=== PATIENT | male | born 1935 | race Caucasian/White ===

== ENCOUNTER 2018-01-02 09:05 | Day surgery (SDC) | payer MEDICARE, BC ==
[~2018-01-02 09:05] MED LIST: MIDAZOLAM INJ 2 MG/2 ML VIAL (J2250) As Ordered
[2018-01-02] MEDS: TROPICAMIDE 1% OPHTH SOLN 2ML OS (09:33)
[2018-01-02] MEDS: PROPARACAINE 0.5% OPHTH SOL 15ML OS (09:33)
[2018-01-02] MEDS: OFLOXACIN 0.3 % (OCUFLOX) OPTH SOL 5ML OS (09:33)
[2018-01-02] MEDS: PHENYLEPHRINE 2.5% OPHTH SOL 2ML OS (09:33)
[2018-01-02] MEDS ORDERED: fentaNYL 100 MCG/2 ML INJECTION (J3010) As Ordered (10:07)
[2018-01-02] MEDS: POVIDONE-IODINE 5% OPHTH PREP SOL 30ML As Ordered (10:15)
[2018-01-02] MEDS: BALANCED SALT IRRIGATION SOLUTION 500ML BAG (FOR OR EYE MACHINE) As Ordered (10:15)
[2018-01-02] MEDS: DUOVISC (0.50ML VISCOAT/0.55ML PROVISC) OPHTH KIT As Ordered (10:16)
[2018-01-02] MEDS: LIDOCAINE 0.75%/EPINEPHRINE 0.025% IN BSS 1ML SYR INTRACAMERAL (OR ONLY) As Ordered (10:16)
== END 2018-01-02 10:56 | disposition home or self-care (01) ==
LOC: M SDC 09:05
DX: H25.12 Age-related nuclear cataract, left eye (principal); J45.909 Unspecified asthma, uncomplicated; F17.210 Nicotine dependence, cigarettes, uncomplicated; Z79.899 Other long term (current) drug therapy
CPT/HCPCS: 66984

== ENCOUNTER 2018-01-09 07:45 | Day surgery (SDC) | payer MEDICARE, BC ==
[~2018-01-09 07:45] MED LIST changes: +fentaNYL 100 MCG/2 ML INJECTION (J3010) As Ordered
[2018-01-09] MEDS: PROPARACAINE 0.5% OPHTH SOL 15ML OD (08:22)
[2018-01-09] MEDS: OFLOXACIN 0.3 % (OCUFLOX) OPTH SOL 5ML OD (08:26)
[2018-01-09] MEDS: TROPICAMIDE 1% OPHTH SOLN 2ML OD (08:28)
[2018-01-09] MEDS: PHENYLEPHRINE 2.5% OPHTH SOL 2ML OD (08:30)
[2018-01-09] MEDS: POVIDONE-IODINE 5% OPHTH PREP SOL 30ML As Ordered (09:38)
[2018-01-09] MEDS: DUOVISC (0.50ML VISCOAT/0.55ML PROVISC) OPHTH KIT As Ordered (09:38)
[2018-01-09] MEDS: LIDOCAINE 0.75%/EPINEPHRINE 0.025% IN BSS 1ML SYR INTRACAMERAL (OR ONLY) As Ordered (09:38)
[2018-01-09] MEDS: BALANCED SALT IRRIGATION SOLUTION 500ML BAG (FOR OR EYE MACHINE) As Ordered (09:38)
== END 2018-01-09 10:30 | disposition home or self-care (01) ==
LOC: M SDC 07:45
DX: H25.11 Age-related nuclear cataract, right eye (principal); I25.10 Atherosclerotic heart disease of native coronary artery without angina pectoris; I11.0 Hypertensive heart disease with heart failure; E78.00 Pure hypercholesterolemia, unspecified; M12.9 Arthropathy, unspecified; K21.9 Gastro-esophageal reflux disease without esophagitis; I50.9 Heart failure, unspecified; Z88.0 Allergy status to penicillin; Z88.8 Allergy status to other drugs, medicaments and biological substances; Z79.899 Other long term (current) drug therapy; Z79.01 Long term (current) use of anticoagulants; Z79.82 Long term (current) use of aspirin; Z95.5 Presence of coronary angioplasty implant and graft; Z85.828 Personal history of other malignant neoplasm of skin; Z92.3 Personal history of irradiation; Z85.46 Personal history of malignant neoplasm of prostate
CPT/HCPCS: 66984